=== PATIENT | male | born 1970 | race Caucasian/White ===

== ENCOUNTER 2019-06-18 12:00 | Observation (INO) ==
[2019-06-18] MEDS ORDERED: ZOFRAN 4 MG/2 ML ONE (13:20)
[2019-06-18] MEDS ORDERED: SODIUM CHLORIDE 1,000 ML IV ONE (13:25)
[2019-06-18] MEDS ORDERED: ANTIVERT ONE (16:04)
[2019-06-18] MEDS ORDERED: KAYEXALATE SUSP ONE (17:13)
[2019-06-18] MEDS ORDERED: NORVASC ONE (17:13)
[2019-06-18] MEDS ORDERED: PHENERGAN 25 MG/ML VIAL ONE ×2 (17:13→22:13)
[2019-06-18] MEDS ORDERED: TYLENOL PO PRN (17:32)
[2019-06-18] MEDS ORDERED: PHENERGAN 25 MG/ML VIAL 25 MG in SODIUM CHLORIDE 50 ML IV PRN (17:38)
[2019-06-18] MEDS ORDERED: DILAUDID 1 MG/ML SYRINGE IVP PRN (17:38)
[2019-06-18] MEDS ORDERED: HUMULIN R SUBCUT PRN (17:41)
[2019-06-18 18:10] VITALS: BMI 41.9
[2019-06-18] MEDS: SODIUM CHLORIDE 1,000 ML IV SCH (18:30)
[2019-06-18] MEDS: LOVENOX SUBCUT SCH (18:40)
[2019-06-19] MEDS: SODIUM CHLORIDE 1,000 ML IV SCH ×4 (04:32→22:12)
[2019-06-19] MEDS ORDERED: CARAFATE PO SCH (06:30)
--- NOTE | 2019-06-19 07:36 | DI ---
EXAM: Frontal chest HISTORY: Chest pain FINDINGS: Normal heart size. No acute infiltrates are seen. No vascular congestion. There is no c onsolidation, visible pleural fluid or pneumothorax. Bones reveal no acute fracture. IMPRESSION: No acute cardiopulmonary process.
[2019-06-19] MEDS: LOVENOX SUBCUT SCH (08:02)
--- NOTE | 2019-06-19 09:09 | CT ---
PRELIMINARY EXAM: CT of the head without contrast. History: Headache. Technique: Multiplanar CT images through the head were obtained without the administration of IV con trast Findings: The visualized paranasal sinuses and mastoid air cells are clear in general. No acute alexsander varial abnormalities. Intracranially the ventricular and cisternal spaces are normal in size, shape and configuration for a patient of this age. No dominant mass or midline shift. No hydrocephalous. No acute intracranial hemorrhage or abnormal extraaxial fluid collections. Impression: No acute intracranial process
--- NOTE | 2019-06-19 09:12 | CT ---
PRELIMINARY EXAM: CT ABDOMEN AND PELVIS HISTORY: Abdominal pain and diarrhea TECHNIQUE: CT abdomen and pelvis without intravenous contrast. Images were reconstructed using 5 mm section thickness. Reformations were prepared. COMPARISON: None FINDINGS: Liver is unremarkable. A few tiny splenic calcifications are present. Gallbladder, pancreas and adr enal glands appear normal. There is mild nonspecific perinephric fat stranding. No nephrolithiasis or hydronephrosis is seen. There is mild atherosclerotic disease. Stomach is mildly distended with air and fluid. Normal appendix. General bowel gas pattern is withi n normal limits. There is no convincing CT evidence of enterocolitis. Urinary bladder is unremarkab le. There is no prostate enlargement or ascites. Abdominal wall is intact. The bones reveal transitional vertebral body anatomy at the lumbosacral ju nction and mild to moderate degenerative disc changes. Lung bases are free of infiltrate. There is no pneumoperitoneum. IMPRESSION: 1. Normal bowel gas pattern. No convincing CT evidence of enterocolitis. Normal appendix. No asci deepak or free air. 2. Mild atherosclerotic disease.
--- NOTE | 2019-06-19 09:30 | CT ---
EXAM: CT of the abdomen pelvis with contrast History: Abdominal pain, elevated amylase and lipase Comparison: CT abdomen pelvis 06/18/2019 Technique: Multiplanar CT images through the abdomen pelvis were obtained following administration o f IV contrast Findings: Calcified granulomas seen within the right lower lobe. Lung bases are free of consolidati on. No acute osseous abnormalities. The liver is fatty. No gallstones identified by CT. Calcified granulomas within the spleen. No foc al liver lesions. Pancreas is unremarkable. There is no elvi peripancreatic inflammation. Adrenal glands are unremarkable. No renal masses. No hydronephrosis. No bowel obstruction. The appendix is normal. No free air and no ascites. No bladder wall thickening. Prostate is not enlarged. No p erirectal inflammation. No enlarged lymph nodes. Mild colonic diverticulosis. No abdominal aortic aneurysm. Impression: 1. No acute intra-abdominal or pelvic process. 2. Hepatic steatosis. 3. Mild colonic diverticulosis
[2019-06-19] MEDS: CARAFATE PO SCH ×3 (10:49→20:57)
--- NOTE | 2019-06-19 11:53 | ED.PDOC ---
Abdominal Pain History of Present Illness 48 year old WM HD #2 with abdominal pain, N/V/D, elevated lipase now with suspected pancreatitis. Overnight nursing notes reviewed. Nasuea improved with IV phenergan. This am he has no abdominal pain, he feels 100% better. MCF[place] resolved. Nausea resolved/stable. No abdominal pain this am. He had 2 solid BM last night. 3 Voids since admit without any pain/dysuria/burning/frequency/hesitancy. Vitals reviewed with patient/(at bedside) BP 177/85, 169/85, 113/67, 158/89. Pulse 78, 78, 106, 109, 96. RR 18- 20, O2 92-98%. Tele HR last chedk [address] while up OOB to go to restroom. Labs this am reviewed. WBC has dropped from 15.49 to 15.05, Hgb from 18.8 to 18.5. Plt 284 to 254. Sodium this am 138.6, k+ 3.85 (down from 5.82), BUN 21.8 down to 18 and Glucose 121.8. Lipase up from 348.8 to 624.1 and suggestive of acute pancreatitis. I will get the CT abd/pelvis with contrast today. I will hold the januvia and d/c this med. At discharge I will provide lantus 10 units daily. He noted to me today that he restarted the januvia 3 months ago and has seen his PCP and noted abd pain off and on over last 3 months. I discussed it is probably a good idea to avoid the class of rx DPPIV. We discussed his current meds, will continue the other agents. Again, the current symptoms have resolved. He tolerated some food last night. ?Gastroenteritis seems to be improving. Discussed dairy as a problem and he noted "i am a milkaholic." If GI irritation/gastroenteritis/pancreatitis/colitis, he may be temporarily lactose intolerant. He did not that he was feeling worse, gasseous, bloated, diaphoretic more after heavier meals/cheesy/greasy. No RUQ pain, no abd pain at all at present. Reviewed telemetry, talked with am nurse, case management, patient/. Reviewed labs with them today. CK/Troponin I negative so far. Tele and EKG w/o any sign/symptoms of cardiac process. Diarrhea resolved, nausea resolved, abdominal pain resolved, MCF[place] resolved, labs improving other than lipase. Lovenox for DVT prophy Disposition: Current plan discharge in am tomorrow if symptoms continue to improve. Laboratory Last Values WBC 15.05 K/ul (4.2-10.2) H 06/19/19 05:00 RBC 6.07 10^6/ul (4.70-6.10) 06/19/19 05:00 Hgb 18.5 g/dl (14.0-18.0) H 06/19/19 05:00 Hct 54.9 % (42.0-52.0) H 06/19/19 05:00 MCV 90.4 fl (80.0-94.0) 06/19/19 05:00 MCH 30.5 pg (27.0-31.0) 06/19/19 05:00 MCHC 33.7 (31.8-35.4) 06/19/19 05:00 RDW Coeff of Sonia 12.4 % (11.6-14.8) 06/19/19 05:00 Plt Count 254 10^3/uL (140-440) 06/19/19 05:00 Immature Gran % (Auto) 0.9 % (0.0-5.0) 06/19/19 05:00 Neut % (Auto) 70.7 06/19/19 05:00 Lymph % (Auto) 17.9 (10.0-50.0) 06/19/19 05:00 [place] % (Auto) 10.0 (0-10) 06/19/19 05:00 Eos % (Auto) 0.2 % (0.0-7.0) 06/19/19 05:00 Baso % (Auto) 0.3 % (0.0-3.0) 06/19/19 05:00 Immature Gran # (Auto) 0.1 (0.0-1.0) 06/19/19 05:00 Neut # (Auto) 10.7 K/ul (2.0-6.9) H 06/19/19 05:00 Lymph # (Auto) 2.7 K/uL (0.60-3.4) 06/19/19 05:00 [place] # (Auto) 1.5 K/uL (0.4-2.0) 06/19/19 05:00 Eos # (Auto) 0.0 K/ul (0.0-0.7) 06/19/19 05:00 Baso # (Auto) 0.1 K/uL (0-0.2) 06/19/19 05:00 Sodium 138.6 mmol/L (134.5-145) 06/19/19 05:00 Potassium 3.85 mmol/L (3.5-5.1) 06/19/19 05:00 Chloride 103.5 mmol/L (98-107) 06/19/19 05:00 Carbon Dioxide 27.5 mmol/L (22-30.0) 06/19/19 05:00 Anion Gap 11.45 06/19/19 05:00 BUN 18.0 mg/dL (9-20) 06/19/19 05:00 Creatinine 0.77 mg/dL (0.60-1.10) 06/19/19 05:00 Estimated GFR (MDRD) 108.00 mL/min 06/19/19 05:00 BUN/Creatinine Ratio 23.37 06/19/19 05:00 Glucose 121.8 mg/dL (74-106) H D 06/19/19 05:00 Hemoglobin A1c 7.62 (4.0-6.0) H 06/19/19 05:00 Calcium 8.56 mg/dL (8.4-10.2) 06/19/19 05:00 Magnesium 1.84 mg/dL (1.6-2.3) 06/18/19 13:03 Total Bilirubin 0.68 mg/dL (0.2-1.3) 06/19/19 05:00 AST 26.2 U/L (17-59) 06/19/19 05:00 ALT 32.9 U/L (0-50) 06/19/19 05:00 Alkaline Phosphatase 49.4 U/L (38-126) D 06/19/19 05:00 Total Creatine Kinase 82.0 U/L (55-170) 06/19/19 07:50 Troponin I < 0.012 ng/ml (0.0000-0.120) 06/19/19 07:50 Total Protein 8.05 g/dL (6.3-8.2) 06/19/19 05:00 Albumin 4.34 g/dL (3.5-5.0) 06/19/19 05:00 Globulin 3.71 06/19/19 05:00 Albumin/Globulin Ratio 1.16 06/19/19 05:00 Amylase 220.8 U/L (30-110) H D 06/19/19 05:00 Lipase 624.1 U/L (23-300) H 06/19/19 05:00 Urine Color Yellow (YELLOW) 06/18/19 13:03 Urine Clarity Clear (CLEAR) 06/18/19 13:03 Urine pH 5.0 (5-9) 06/18/19 13:03 Ur Specific [place] 1.015 (1.005-1.030) 06/18/19 13:03 Urine Protein Negative (NEGATIVE) 06/18/19 13:03 Urine Glucose (UA) 2+ (NEGATIVE) 06/18/19 13:03 Urine Ketones 3 (NEGATIVE) 06/18/19 13:03 Urine Blood Negative (NEGATIVE) 06/18/19 13:03 Urine Nitrite Negative (NEGATIVE) 06/18/19 13:03 Urine Bilirubin Negative (NEGATIVE) 06/18/19 13:03 Urine Urobilinogen 0.2 (0.2) 06/18/19 13:03 Ur Leukocyte Esterase Negative (NEGATIVE) 06/18/19 13:03 Urine Opiates Screen Negative (NEGATIVE) 06/18/19 13:03 Ur Oxycodone Screen Negative (NEGATIVE) 06/18/19 13:03 Urine Methadone Screen Negative (NEGATIVE) 06/18/19 13:03 Ur Propoxyphene Screen Negative (NEGATIVE) 06/18/19 13:03 Ur Barbiturates Screen Negative (NEGATIVE) 06/18/19 13:03 U Tricyclic Antidepress Negative (NEGATIVE) 06/18/19 13:03 Ur Phencyclidine Scrn Negative (NEGATIVE) 06/18/19 13:03 Ur Amphetamine Screen Negative (NEGATIVE) 06/18/19 13:03 U Methamphetamines Scrn Negative (NEGATIVE) 06/18/19 13:03 U Benzodiazepines Scrn Negative (NEGATIVE) 06/18/19 13:03 Urine Cocaine Screen Negative (NEGATIVE) 06/18/19 13:03 U Cannabinoids Screen Positive (NEGATIVE) 06/18/19 13:03 Plasma/Serum Alcohol < 10.0 mg/dL (0.0-50.0) 06/18/19 13:03 Abdominal pain location: none (now resolved. ) Pain scale (0-10): 0 Associated symptoms: Denies diarrhea (resolved) or hematuria Review of Systems Const All systems reviewed & are unremarkable except as noted in HPI and below Reports as per HPI and change in appetite (better) Eyes Reports no additional eye complaints ENT Reports no additional ear, nose, mouth, and throat complaints Card Reports no additional cardiovascular complaints; Denies chest pain or dizziness (now resolved. ) Resp Reports no additional respiratory complaints, Denies cough and Denies shortness of breath with activity GI Reports no additional gastrointestinal complaints and change in appetite (better); Denies abdominal pain (resolved), bright, red blood in stool, constipation, loose stools (resolved), difficulty swallowing or nausea (resolved) Yes no additional male genitourinary complaints and as per HPI; No discharge, painful urination or blood in urine Musc Reports no additional musculoskeletal complaints; Denies back pain or decreased strength Skin Reports no additional skin complaints; Denies unusual bruising or dry skin Neuro Reports no additional neurologic complaints and as per HPI Psych Reports no additional psychiatric complaints, as per HPI, anxiety (stable) and depression (stable); Denies lack of concentration Endo Reports no additional endocrine complaints Raoul/Lymph Reports no additional hematologic/lymphatic complaints Aller/Immun Reports no additional allergic/immunologic complaints Exam Const Constitutional General: cooperative, healthy appearing, comfortable, no acute distress, alert, awake and active; No acute distress or diaphoretic (resolved) Nutritional Appearance: obese Orientation/consciousness: oriented to person, oriented to place, oriented to time and oriented x3 Constitutional Limitations: no limitations [facility] Head: normal to inspection, normocephalic and atraumatic Ears: hearing grossly normal bilaterally and external ears normal General nose exam: external nose normal, nares normal, nasal mucous membranes and turbinates normal and no nasal discharge Face and sinus: normal facial exam and sinuses nontender Teeth and gingiva: dentition normal Throat: posterior oropharynx normal Eyes General: appearance normal, both eyes and all related structures Periorbital: periorbital findings normal Sclera: sclerae normal Pupils: PERRL EOM: EOM intact bilaterally Neck Neck: normal visual inspection Neck mass: No Thyroid: thyroid normal Chest Chest palpation & inspection: normal inspection of the chest Resp Effort & Inspection: normal respiratory effort and able to speak in complete sentences Auscultation: clear to auscultation bilaterally Cardio Rate: regular rate Rhythm: regular rhythm Heart sounds: S1 normal, S2 normal and no murmurs Bruits: no abdominal aortic bruits Peripheral pulses: pulses 2+ throughout GI Inspection (GI): normal to inspection, No abdominal wall ecchymosis, No abdominal distension and central obesity Palpation (GI): No abdominal aortic bruit, soft, nontender, no guarding, no hepatosplenomegaly, no hepatomegaly and no splenomegaly Percussion: normal to percussion Auscultation: normal bowel sounds Rectal Exam - Male: Yes deferred General Exam: Yes bimanual renal exam normal bilaterally and Yes bladder normal to palpation Musc Cervical Spine: normal cervical lordosis Skin General skin exam: no rashes or lesions noted, elasticity normal and turgor normal Rashes: no rashes Neuro General: Yes oriented to person, Yes oriented to place and Yes oriented to time Cranial nerves: Yes CN's II-XII intact bilaterally and Yes PERRL Motor exam (neuro): strength 5/5 throughout Sensory Exam: No sensory deficit Extrem General: normal to inspection, full ROM, normal capillary refill and no clubbing, cyanosis or edema Psych Appearance: grossly normal Mental Status: mental status grossly normal Mood: congruent mood Speech and movement: speech and movement normal Thought process: normal thought process Assessment & Plan Assessment & Plan (1) Elevated lipase: Current Visit: Yes Comment: Elevated lipase at this time consistent with pancreatitis. Await CT abd/pelvis with contrast. Lipase elevated today up to 624.1 from 348.8. We will continue to treat as pancreatitis. HIs WBC is stable at 15.05. BUN has dropped from 21.8 to 18. Vasu score of 0-1. At present he is symptom free, abdominal pain is resolved, dizziness is resolved, [place] is resolved. He is feeling better, tolerating some PO intake. IF he continues to improve, plan will be to d/c him home tomorrow. Will hold the Januvia. Continue jardiance. Continue SSI. Avoid dairy x 1 week. Code(s): R74.8 - Abnormal levels of other serum enzymes Category: Medical (2) Hyperlipidemia: Current Visit: Yes Comment: Chronic stable. Code(s): E78.5 - Hyperlipidemia, unspecified Category: Medical (3) Chewing tobacco nicotine dependence: Current Visit: Yes Comment: Continued cessation encouraged. Code(s): F17.220 - Nicotine dependence, chewing tobacco, uncomplicated Category: Social Hx (4) Obesity: Current Visit: Yes Comment: Chronic/stable/unchanged. Code(s): E66.9 - Obesity, unspecified Category: Medical (5) Essential (primary) hypertension: Current Visit: Yes Comment: Increase Lisinopril from 10mg to 20mg. We will continue to fluid hydrate with 150ml NS. Code(s): I10 - Essential (primary) hypertension Category: Medical (6) Type 2 diabetes mellitus with hemoglobin A1c goal of less than 7.0%: Current Visit: Yes Comment: Hold metformin x 48 hours. D/C Januvia. Continue jardiance. Continue SSI. Stable. A1C ordered. - A1C ordered. Code(s): E11.9 - Type 2 diabetes mellitus without complications Category: Medical (7) Hyperkalemia: Current Visit: Yes Comment: Resolved. Continue to monitor. - CMP in am tomorrow. Code(s): E87.5 - Hyperkalemia Category: Medical (8) Dizziness: Current Visit: Yes Comment: Resolved. Continue to monitor. Code(s): R42 - Dizziness and giddiness Category: Medical Patient Instructions: Disposition> >35 minutes rounding on patient today. He is feeling much better. BP is more stable. Tolerating the carafate. Lovenox is onboard. No abx for now. Repeat CBC/CMP in am. CT abd/pelvis negative. Plan to D/C patient from inpatient status 06/20/19. SSI on board. Saw-I on board.
[2019-06-19] MEDS ORDERED: LEXAPRO PO SCH (17:00)
[2019-06-19] MEDS ORDERED: ZOCOR PO SCH (17:00)
[2019-06-19] MEDS ORDERED: JARDIANCE PO SCH (17:00)
[2019-06-19] MEDS ORDERED: ZESTRIL PO SCH ×2 (17:00)
--- NOTE | 2019-06-19 17:26 | PCM ---
Chief Complaint Chief Complaint: Abdominal pain, nausea, dry heaving and diaphoresis. History of Present Illness History of Present Illness: 48 yo CM in ER room 5 presented to ED around noon today and met with DR. Werner. Here with Mary today. The patient was driving earlier from [place] to [employer]. While driving he felt real hot, head swimming/nausea, sensation to have BM, dry heaves/retching. He has had recent change in meds Januvia and jardiance. He has been on them x 3 months per patient. He is on metformin as well for his diabetes. The patient last A1C was 1 month ago and went from 13.1 to 6.3. the patient has intermittent cramping, n ausea, [place]. ETOH intake 18pack per week. No tobacco smoking, + chewing tobacco. I was called at 4:[address] Werner. Patient PCP Jacinta Gilbert. As noted above, he was going shopping, became hot in car, AC was not functional, hot/sweating, profuse dizziness and sweating. Severely light headed. Tried to drive back home, could not make it. Family stopped him around [place]. He was diffusely sweating, no r/o chest pain, he was pale, abdominal bloating discomfort, dizziness. This is #2 event in last week. It has happened x 2 historically: starts with GI pain, explosive diarrhea and then weakness. He is not checking sugars regularly at home. Patient was seen in ED room 5 1645 by me. He feels weak, disoriented, dizzy, EKG in ED was normal. CT head/abd pelvis normal w/o contrast. No convincing CT evidence of enterocolitis. No ascites or free air. We will get IV contrast exam tomorrow am. Consider pancreatitis as amylase and lipase were up a little. This may be from emesis but also ?januvia/jardiance. Urine 3+ ketones. Glucose was 235, known DM 2. Last meal/food around 11 am today. He noted he had a few bites of snickers as his thought sugars were bottoming out. He may have had that happen and now having hyperglycemia. WBC 15.24, hgb 18.9, plt 276. neutrophilia. Hemoconcentrated. CMP showed 135 sodium, potassium 5.82, cl 101.5. glucose 25.1. calcium 8.99. AST 31.1, Alt 41.6. Albumin 4.77. amylase and lipase elevated. ETOH <10. Mg++ 1.84. Urine SG 1.015. EKG reviewed by me QTC 446, NSR, NL EKG. Normal MD, normal QRS, normal axis, no acute ST/T changes. In ED he has had ~600-700 ml NS w/o K+. meclizine 25mg, Kayexalate PO, Norvasc 5mg. Diet soft drinks regularly 3 per day or so. He normally takes lisinopril. This was held by ED due to hyperkalemia. No recent travel, no recent steroids, no sick contacts. Last use of marijuana last night. He likes to smoke marijuana. Does not want to quit smoking THC. He has not increased ibuprofen or aleve. He has not had ulcer historically. Hydrated in ED, antivert given. Zofran given and nausea resolved. He notes something is weird/not right. Normally healthy but this came up and is odd for him. No abdominal pain, soft non tender now. Vitals most recently in ED showed 166/[address] Werner noted that they were variable. Nothing for BP was given so far in ED as it has been variable. Lisinopril held as above and Norvasc ordered. I will resume the lisinopril. Telemetry so far in ED nothing abnormal. No rhythm abnl. K+ minimally elevated. He is moaning. Dizzy, weak, tired, nauseated in head and stomach. I will give him SSi, hold Januvia. Hold metformin Continue jardiance. No urinary symptoms. No back pain, no blood in stool/emesis. He received kayexalate within ED 15G. Gastroenteritis vs Pancreatitis possible. As noted above we will get a CT abd/pelvis in am w/ contrast. I will add Phenergan 25mg IV or PO q 8 hours. Fluids 150ml/hour for now. Repeat CBC/CMP in am, amylase/lipase in am. Tele to be monitored. SSI. I checked back on patient at 1999. He was feeling better, less puny, less nausea, [place] better. BP was 177/85. Fluids to continue tonight. Resume lisinopril and will give norvasc 5 as listed. Review of Systems Constitutional: chills, weakness, sweats, fatigue and loss of appetite; No fever Eyes: No blurred vision, double-vision, discharge, itching, pain, redness, photophobia and other Ears: No pain, bleeding, drainage, ringing, hearing loss and other Nose: No bleeding, congestion, discharge and other Throat: No pain, swelling, voice change and other Mouth: No bleeding, pain, swelling and other Respiratory: No cough, shortness of air, wheeze, hemoptysis, pain with breathing and other Cardiovascular: No chest pain, left arm pain, diaphoresis, PND, orthopnea, edema, palpitations, syncope and other Gastrointestinal: abdominal pain, nausea and diarrhea; No vomiting, melena, hematemesis, hematochezia, dysphagia and constipation Genitourinary: No dysuria, hematuria, frequency, incontinence, flank pain, penile discharge, testicular pain and testicular swelling Neurological: headache, dizziness and weakness; No seizure, numbness, speech difficulty, problems with walking, tremor and fainting Musculoskeletal: No pain and swelling in joints Skin: No rash, pruritus, lacerations, wounds and bruising Immunology: No hives, itching, frequent infections and difficulty healing Hematology: No easy bruising, easy bleeding and swollen glands Endocrine: excessive thirst; No weight changes, cold intolerance, heat intolerance, excessive hunger and polyuria Psychiatric: No depression, anxiety, sleeplessness, hopelessness, suicidal and hallucinations Habits: tobacco use (chewing tobacco), substance use (THC/Marijuana) and alcohol use (2-3 drinks per day beer. ) Past Medical History Past Medical History: DM2/HTN/Hyperlipidemia. Past Surgical History Past Surgical History: None Allergies Allergies Allergy/AdvReac Type Severity Reaction Status Date / Time No Known Allergies Allergy Unverified 06/18/19 18:10 Medications Medications: Medications Generic Name Dose Route Start Last Admin Trade Name Freq PRN Reason Stop Dose Admin Acetaminophen 650 mg 06/18/19 17:32 Tylenol PO 07/18/19 17:31 Q4H PRN Mild Pain Enoxaparin Sodium 40 mg 06/18/19 18:00 Lovenox SUBCUT 07/18/19 17:59 DAILY WOJCIECH Hydromorphone HCl 1 mg 06/18/19 17:38 Dilaudid 1 Mg/Ml Syringe IVP 07/18/19 17:37 Q4HR PRN Abdominal Pain Sodium Chloride 1,000 mls @ 150 mls/hr 06/18/19 18:00 Sodium Chloride IV 07/18/19 17:59 .Q6H40M WOJCIECH Promethazine HCl 25 mg/ Sodium 51 mls @ 75 mls/hr 06/18/19 17:38 Chloride IV 07/18/19 17:37 Q6H PRN Nausea / Vomiting Family History Past Family History: Mother Breast Cancer Father cancer unknown Social History Past Social History: Lives with . 12 yr old daughter. THC use. Works for [employer]. tobacco chewing. Physical Examination HEENT: Vitals: As per HPI/ER documentation. Constitutional: Appearance-No acute distress, Consistent with stated age. Orientation- Oriented x 3, alert Build and Nutrition-[Obese male] General- Patient is pleasant and cooperative with the interview and exam. Integumentary: General-No rashes, ulcers or lesions. Palpation- Normal skin moisture/turgor. Skin is warm to touch, appropriate. Capillary refill is normal bilateral Upper and lower extremity. Head/Neck: Head- normocephalic and atraumatic. Neck- without visible/palpable lumps or pulsations. Palpation- No bony tenderness about head/neck along frontal, occipital, temporal, parietal, mastoid, jawline, zygoma, orbit or any other location. NO temporal artery tenderness. No TMJ tenderness. Neck Supple. Thyroid-No thyromegaly, no nodules Eye: Bilaterally PERRLA, EOMI. No discharge. Upper and lower eyelids are normal. Sclera/conjunctiva normal without discharge. Cornea is normal and clear. Lens is normal. Eyeball appears normal. No ciliary flushing, no conjunctival injection. ENMT: Pinna- normal without tenderness or erythema. External auditory canal Left- normal without erythema or discharge, no excessive cerumen. External auditory canal Right-normal without erythema or discharge, no excessive cerumen. TM left- Yost/pearly, normal light reflex and anatomy TM Right- Yost/pearly, normal light reflex and anatomy Hearing Assessment-normal to conversational speech. Nose and sinus- No sinus tenderness along frontal/maxillary region. External appearance normal and midline. Nares- bilateral quiet airflow, no discharge. Nasal mucosa- No bleeding noted and no ulcerations observed. Labette, moist. Turbinates non boggy. Lips- normal color, moist without cracks/lesions Oral Cavity/Palate- hard/soft palate intact without lesions, oral mucosa pink and moist. Tongue normal midline. Oropharynx- no pharyngeal erythema, Uvula midline. No post nasal drip. No exudate. Salivary glands- Non tender to palpation CHEST/LUNG: Inspection- symmetric chest wall no pectus deformity. Normal effort, no distress, no use of accessory muscles. Palpation- nontender sternum, ribline. No abnormal pulsations. Auscultation- Breath sounds normal throughout all lung vaughn. Normal tracheal sounds, Normal bronchial sounds overlying sternum, Bronchovessicular sounds normal between scapulae posteriorly, Normal vessicular breath sounds heard throughout periphery. Lungs are clear today. Adventitious sounds- No wheezes, rales, rhonchi. CARDIOVASCULAR: Carotid artery- normal, no bruits or abnormal pulsations. Jugular vein- no pulsations. Palpation/Percussion- Normal PMI, no palpable thrill Auscultation- Regular rate and rhythm. No murmur noted in sitting, supine positions. Extremities- no digital clubbing, cyanosis, edema, increased warmth. ABDOMEN: Inspection- normal and no visible pulsations. Normal contour. Auscultation- Bowel sounds normal, no abdominal bruits. Palpation/Percussion- soft, mild generalized tenderness haney negative, mcburney point tenderness negative,, no rebound tenderness, no rigidity (guarding), no jar tenderness, no masses. Liver-no hepatomegaly, Spleen no splenomegaly, Hernias- none. Rectal not examined. Peripheral Vascular: Upper extremity Left- Normal temperature with pink nailbeds and no ulcerations. Upper extremity Right- Normal temperature with pink nailbeds and no ulcerations. Lower extremity- Normal temperature with pink nailbeds and no ulcerations. DP pulses 2+ bilaterally. Pedal hair intact. Normal capillary refill. Edema- No edema. Musculoskeletal: Generalized-No generalized swelling or edema of extremities, no digital clubbing or cyanosis, neurovascularly intact all four extremities. Upper extremity- Symmetrical posture. No visible deformity. Normal sensation along medial and lateral upper extremity proximally and distally. NO tenderness overlying shoulder, lateral/medial epicondyle. Pipefitter 5/5 and strength 5/5 bilateral UE. Elbow palpated, no tenderness overlying olecranon. Normal supination, pronation to active/passive ROM and to resisted rotation. Bicep insertion/tricep insertion appear normal without obvious pathology. Rotator cuff evaluated and intact. Normal wrist ROM bilaterally. Normal hand movement, intrinsic muscles of hands normal. No tenderness to palpation of hands/wrists/elbows. Lower extremity- Hip: Not tender to palpation, no pain, no swelling, edema or erythema of surrounding tissue, normal strength and tone. Normal appearing hip ROM bilaterally without pain. Knee: Knee ROM normal. No tenderness overlying trochanters, no tenderness about patella, quad tendon, patellar tendon. No tenderness at tibial tuberosity. Ankle: normal ROM not tender to palpation along medial/lateral malleolus. Foot: Normal movement of toes, no tenderness bilateral feet/toes. Normal foot type. Spine/Ribs- No deformities, masses or tenderness, no known fractures, normal strength, Normal ROM. Normal stability No tenderness along C/T/L spine. Normal appearing ROM about spine. Neurological: General- Moves all 4 extremities symmetrically. Symmetrical face and body posture. Cranial nerves- individually evaluated II-XII and intact. PERRLA, Normal EOMI, visual/special senses appear intact, Face is symmetrical and normal sensation/movement, normal tongue, normal strength/posture of neck musculature. Reflexes- intact with DTR 2+ patellar, Achilles, bicep, brachial, tricep. Ankle clonus normal with 2 beats. Strength- 5/5 bilateral UE and LE. Soft touch- intact bilateral UE and LE. Temperature sensation- intact bilateral UE and LE. Neuropsych: Oriented- Person, place, time. (AAOx3), Mood/affect- normal and congruent. Able to articulate well. Speech-Normal speech, normal rate, normal tone, normal use of language, volume and coherence. Thought content- normal with ability to perform basic computations and apply abstract thought/reason. Associations- intact, no SI/HI, no hallucinations, delusions, obsessions. Judgment/insight- Appropriate. Memory-Recall intact, remote and recent memory intact. Knowledge- Age appropriate fund of knowledge, concentration and attention span normal. Lymphatic: Head/Neck- normal size and non tender to palpation. Axillary- normal size and non tender to palpation. Femoral and Inguinal- normal size and non tender to palpation. Lab/Tests/Diagnostic Imaging Lab/Tests/Diagnostic Imaging: Laboratory Last Values WBC 15.49 K/ul (4.2-10.2) H 06/18/19 13:03 RBC 6.20 10^6/ul (4.70-6.10) H 06/18/19 13:03 Hgb 18.8 g/dl (14.0-18.0) H 06/18/19 13:03 Hct 56.0 % (42.0-52.0) H 06/18/19 13:03 MCV 90.3 fl (80.0-94.0) 06/18/19 13:03 MCH 30.3 pg (27.0-31.0) 06/18/19 13:03 MCHC 33.6 (31.8-35.4) 06/18/19 13:03 RDW Coeff of Sonia 12.6 % (11.6-14.8) 06/18/19 13:03 Plt Count 284 10^3/uL (140-440) 06/18/19 13:03 Immature Gran % (Auto) 0.6 % (0.0-5.0) 06/18/19 13:03 Neut % (Auto) 80.3 06/18/19 13:03 Lymph % (Auto) 11.0 (10.0-50.0) 06/18/19 13:03 [place] % (Auto) 6.8 (0-10) 06/18/19 13:03 Eos % (Auto) 0.8 % (0.0-7.0) 06/18/19 13:03 Baso % (Auto) 0.5 % (0.0-3.0) 06/18/19 13:03 Immature Gran # (Auto) 0.1 (0.0-1.0) 06/18/19 13:03 Neut # (Auto) 12.4 K/ul (2.0-6.9) H 06/18/19 13:03 Lymph # (Auto) 1.7 K/uL (0.60-3.4) 06/18/19 13:03 [place] # (Auto) 1.1 K/uL (0.4-2.0) 06/18/19 13:03 Eos # (Auto) 0.1 K/ul (0.0-0.7) 06/18/19 13:03 Baso # (Auto) 0.1 K/uL (0-0.2) 06/18/19 13:03 Sodium 135.5 mmol/L (134.5-145) 06/18/19 13:03 Potassium 5.82 mmol/L (3.5-5.1) H 06/18/19 13:03 Chloride 101.5 mmol/L (98-107) 06/18/19 13:03 Carbon Dioxide 22.8 mmol/L (22-30.0) 06/18/19 13:03 Anion Gap 17.02 06/18/19 13:03 BUN 21.8 mg/dL (9-20) H 06/18/19 13:03 Creatinine 0.77 mg/dL (0.60-1.10) 06/18/19 13:03 Estimated GFR (MDRD) 108.00 mL/min 06/18/19 13:03 BUN/Creatinine Ratio 28.31 06/18/19 13:03 Glucose 235.1 mg/dL (74-106) H 06/18/19 13:03 Calcium 8.99 mg/dL (8.4-10.2) 06/18/19 13:03 Magnesium 1.84 mg/dL (1.6-2.3) 06/18/19 13:03 Total Bilirubin 0.66 mg/dL (0.2-1.3) 06/18/19 13:03 AST 31.1 U/L (17-59) 06/18/19 13:03 ALT 41.6 U/L (0-50) 06/18/19 13:03 Alkaline Phosphatase 81.8 U/L (38-126) 06/18/19 13:03 Total Creatine Kinase 69.2 U/L (55-170) 06/18/19 13:03 Total Protein 8.82 g/dL (6.3-8.2) H 06/18/19 13:03 Albumin 4.77 g/dL (3.5-5.0) 06/18/19 13:03 Globulin 4.05 06/18/19 13:03 Albumin/Globulin Ratio 1.17 06/18/19 13:03 Amylase 182.1 U/L (30-110) H 06/18/19 13:03 Lipase 348.8 U/L (23-300) H 06/18/19 13:03 Urine Color Yellow (YELLOW) 06/18/19 13:03 Urine Clarity Clear (CLEAR) 06/18/19 13:03 Urine pH 5.0 (5-9) 06/18/19 13:03 Ur Specific [place] 1.015 (1.005-1.030) 06/18/19 13:03 Urine Protein Negative (NEGATIVE) 06/18/19 13:03 Urine Glucose (UA) 2+ (NEGATIVE) 06/18/19 13:03 Urine Ketones 3 (NEGATIVE) 06/18/19 13:03 Urine Blood Negative (NEGATIVE) 06/18/19 13:03 Urine Nitrite Negative (NEGATIVE) 06/18/19 13:03 Urine Bilirubin Negative (NEGATIVE) 06/18/19 13:03 Urine Urobilinogen 0.2 (0.2) 06/18/19 13:03 Ur Leukocyte Esterase Negative (NEGATIVE) 06/18/19 13:03 Urine Opiates Screen Negative (NEGATIVE) 06/18/19 13:03 Ur Oxycodone Screen Negative (NEGATIVE) 06/18/19 13:03 Urine Methadone Screen Negative (NEGATIVE) 06/18/19 13:03 Ur Propoxyphene Screen Negative (NEGATIVE) 06/18/19 13:03 Ur Barbiturates Screen Negative (NEGATIVE) 06/18/19 13:03 U Tricyclic Antidepress Negative (NEGATIVE) 06/18/19 13:03 Ur Phencyclidine Scrn Negative (NEGATIVE) 06/18/19 13:03 Ur Amphetamine Screen Negative (NEGATIVE) 06/18/19 13:03 U Methamphetamines Scrn Negative (NEGATIVE) 06/18/19 13:03 U Benzodiazepines Scrn Negative (NEGATIVE) 06/18/19 13:03 Urine Cocaine Screen Negative (NEGATIVE) 06/18/19 13:03 U Cannabinoids Screen Positive (NEGATIVE) 06/18/19 13:03 Plasma/Serum Alcohol < 10.0 mg/dL (0.0-50.0) 06/18/19 13:[address] abd/pelvis without contrast No acute findings. Assessment (1) Hyperlipidemia: Status: Acute Code(s): E78.5 - Hyperlipidemia, unspecified SNOMED Code(s): 80609872 (2) Elevated lipase: Status: Acute Code(s): R74.8 - Abnormal levels of other serum enzymes SNOMED Code(s): 637974435 Plan Plan: Gastroenteritis/[place]/Dizziness/Elevated Lipase: Ddx considered today i ncluded Gastroenteritis (viral and non viral), Gastritis, PUD, Pancreatitis, Colitis, IBS. We talked about travel, about personal/social history and symptoms. No red flags. Biggest risk factor is dehydration. He had some hemoconcentration. No bloody emesis/diarrhea by history. Mild cramping, mild abdominal pain. HE may have had vasovagal syncope due to pain in his abdomen, may have had hypoglycemia. Risks/benefits of current and new medications discussed with the patient/family today. We talked about anti-emetics and anti- diarrheals. Symptoms are quite vague, which is odd. He has minimal symptoms. BP is up, he reports nausea. Minimal elevation of lipase. He has mild elevation of potassium. He was given kayexalate x1. I will repeat labs in the am. Eval tele. - Admit to inpatient - Telemetry - CBC/CMP in am - Lipase in am - CT with contrast in am - NPO after midnight - Dilaudid 1mg q 4 hours pRn pain - Phenergan 25 mg IV PRN nausea - Tylenol 650 PO PRN [place]/fever - Fluid hydration 150ml which is about maintenance. - CKMB/ Troponin I trended over next 6 hours. Diabetes 2 A1C goal <7% with hyperlglycemia: Hold metformin, hold januvia. Januvia SE can cause pancreatitis. I will have Q 6 hour accucheck and SSI to go with this. - A1c -hold metformin due to CT w/ contrast in am - Hold januvia Hypertension: Resume lisinopril. Norvasc 5mg. Monitor vitals. - Fluid hydration Nicotine dependence: Tobacco Cessation discussed today for 2 minutes. We reviewed lifestyle choices and discussed quitting. Ready to quit status discussed. The risks and hazards of continued tobacco abuse were discussed with the patient today and total tobacco cessation as recommended. It was clearly and unambiguously explained that continued tobacco usage will adversely affect overall morbidity and mortality of the patient. Patient was informed that tobacco use can lead to numerous cancers, worsening of cardiovascular and pulmonary systems and that lung damage is often permanent and irreversible. I advised the patient to inform me if any further assistance is requested, as we can offer counseling services, nicotine replacement inhaled, patch, lozenge, gum, or prescription medications to include Chantix or Wellbutrin for assistance. I will reassess the interest in tobacco cessation at the next and all subsequent visits. DVT Prophy: - Lovenox 40mg subcut. Activity - UP with assist - Fall precaution Diet: - ADA 1800 kcal. - NPO after midnight for exam/CT Disposition: >70 minutes of time spent with patient tonight. Concern for pancreatitis. Will hold januvia, continue jardiance. Continue lisinopril. stop the metformn for now. We will f/u with patient in am. Expected length of stay48 hours. [facility] Medical History (Updated 06/19/19 @ 15:04 by ASHELY LEDESMA, LISA) Hypertension (Acute) Diabetes (Acute) Family History (Updated 06/18/19 @ 18:37 by PEREZ KELLY RN) 32 MOTHER Cancer of breast 33 FATHER Cancer of lung 32 MOTHER Myocardial infarct 33 FATHER Emphysema of lung 33 FATHER Emphysema of lung Other COPD (chronic obstructive pulmonary disease) Social History (Updated 06/18/19 @ 18:50 by PEREZ KELLY RN) Do you feel safe at home: Yes History of physical abuse: No History of emotional abuse: No History of sexual abuse: No Would you like helpful sources: No Smoking and tobacco status: Never smoker Alcohol intake: never Counseling given: No Substance use type: does not use Counseling given: No Counseling provided: none Are you now , , , , never or living with a partner?: In a typical week, how many times do you talk on the telephone with family, friends, or neighbors?: never How often do you get together with friends or relatives?: never Social isolation score (0-1 are the most socially isolated patients): 1 Adopted: No Caregiver/support person: Yes Foster care: No Household members: spouse Housing: house Marital status: M Lives independently: Yes Daycare: family member Number of children: 1 Highest education level completed: high school graduate Financial difficulty paying for basics: not very hard service: No snf: No Current occupational status: employed 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 Current occupational exposures/hazards: Yes Leisure activites: reading History of recent travel: No Sexually active: Yes Do you think of yourself as: straight/heterosexual Current gender identity: male Seatbelt use: always Drives intoxicated or rides with intoxicated driver license agent: No Current diet type/program: diabetic Well-balanced diet: about half the time Working smoke detector in home: Yes Fire extinguisher in home: Yes Carbon monoxide detector in home: Yes Firearms in home: Yes What type of physical activity do you participate in?: walking Physical activity functional status: independent ambulation How many days of moderate to strenuous exercise, like a brisk walk, did you do in the last 7 days: 4
[2019-06-20] MEDS: SODIUM CHLORIDE 1,000 ML IV SCH ×3 (00:23→06:28)
[2019-06-20 05:12] VITALS: BP 123/73; TEMP 98.1
[2019-06-20] MEDS: CARAFATE PO SCH (06:25)
--- NOTE | 2019-09-16 10:56 | PCM.DC ---
Final Diagnosis: Pancreatitis: Suspected cause from januvia Diabetes 2 a1c goal <7%: A1C >7% currently we will add basaglar 10 units nightly. HOld januvia. Metformin held until monday06/22/19 Essential HTN: Dose changed lisinopril increased to 20mg. BMI 41.9 Chewing tobacco use: Cessation Encouraged. THC use: Cessation Encouraged Hyperkalemia: Resolved. (1) Elevated lipase: Status: Acute Code(s): R74.8 - Abnormal levels of other serum enzymes SNOMED Code(s): 872512531 (2) Hyperlipidemia: Status: Acute Code(s): E78.5 - Hyperlipidemia, unspecified SNOMED Code(s): 03254362 (3) Chewing tobacco nicotine dependence: Status: Acute Code(s): F17.220 - Nicotine dependence, chewing tobacco, uncomplicated SNOMED Code(s): 50046427 (4) Obesity: Status: Acute Code(s): E66.9 - Obesity, unspecified SNOMED Code(s): 867235690 (5) Essential (primary) hypertension: Status: Acute Code(s): I10 - Essential (primary) hypertension SNOMED Code(s): 43790887 (6) Type 2 diabetes mellitus with hemoglobin A1c goal of less than 7.0%: Status: Acute Code(s): E11.9 - Type 2 diabetes mellitus without complications SNOMED Code(s): 83787175 (7) Hyperkalemia: Status: Acute Code(s): E87.5 - Hyperkalemia SNOMED Code(s): 87870110 (8) Dizziness: Status: Acute Code(s): R42 - Dizziness and giddiness SNOMED Code(s): 725851209 Reason for Hospitalization: Dizziness, hemoconcentrated CBC, Hyperglycemia, THC +, abdominal pain, elevated LIpase. Condition at Discharge: Markedly improved. 100% better per patient. Held januvia. Added basaglar. Increased lisinopril to 20mg daily. Continue carafate, continue home meds. Metformin to resume 06/22/19. Medications at Discharge: Ambulatory Orders Medication Instructions Recorded Jardiance 25 mg PO 1700 06/18/19 escitalopram oxalate [Lexapro] 20 mg PO 1700 06/18/19 metformin 1,000 mg PO 1700 06/18/19 simvastatin 20 mg PO 1700 06/18/19 insulin glargine [Basaglar KwikPen 10 unit SUBCUT DAILY #3 ml 06/20/19 U-100 Insulin] lisinopril 20 mg PO DAILY #30 tab 06/20/19 pen needle, diabetic #10 each 06/20/19 sucralfate 1 g PO ACHS #400 ml 06/20/19 Lab/Diagnostics: Laboratory Last Values WBC 11.34 K/ul (4.2-10.2) H 06/20/19 03:07 RBC 5.67 10^6/ul (4.70-6.10) 06/20/19 03:07 Hgb 17.3 g/dl (14.0-18.0) 06/20/19 03:07 Hct 51.8 % (42.0-52.0) 06/20/19 03:07 MCV 91.4 fl (80.0-94.0) 06/20/19 03:07 MCH 30.5 pg (27.0-31.0) 06/20/19 03:07 MCHC 33.4 (31.8-35.4) 06/20/19 03:07 RDW Coeff of Sonia 12.6 % (11.6-14.8) 06/20/19 03:07 Plt Count 241 10^3/uL (140-440) 06/20/19 03:07 Immature Gran % (Auto) 0.4 % (0.0-5.0) 06/20/19 03:07 Neut % (Auto) 57.9 06/20/19 03:07 Lymph % (Auto) 29.9 (10.0-50.0) 06/20/19 03:07 [place] % (Auto) 9.9 (0-10) 06/20/19 03:07 Eos % (Auto) 1.4 % (0.0-7.0) 06/20/19 03:07 Baso % (Auto) 0.5 % (0.0-3.0) 06/20/19 03:07 Immature Gran # (Auto) 0.1 (0.0-1.0) 06/20/19 03:07 Neut # (Auto) 6.6 K/ul (2.0-6.9) 06/20/19 03:07 Lymph # (Auto) 3.4 K/uL (0.60-3.4) 06/20/19 03:07 [place] # (Auto) 1.1 K/uL (0.4-2.0) 06/20/19 03:07 Eos # (Auto) 0.2 K/ul (0.0-0.7) 06/20/19 03:07 Baso # (Auto) 0.1 K/uL (0-0.2) 06/20/19 03:07 Sodium 139.8 mmol/L (134.5-145) 06/20/19 03:07 Potassium 3.75 mmol/L (3.5-5.1) 06/20/19 03:07 Chloride 107.5 mmol/L (98-107) H 06/20/19 03:07 Carbon Dioxide 26.2 mmol/L (22-30.0) 06/20/19 03:07 Anion Gap 9.85 06/20/19 03:07 BUN 13.0 mg/dL (9-20) 06/20/19 03:07 Creatinine 0.68 mg/dL (0.60-1.10) 06/20/19 03:07 Estimated GFR (MDRD) 125.00 mL/min 06/20/19 03:07 BUN/Creatinine Ratio 19.11 06/20/19 03:07 Glucose 103.0 mg/dL (74-106) 06/20/19 03:07 Hemoglobin A1c 7.62 (4.0-6.0) H 06/19/19 05:00 Calcium 8.40 mg/dL (8.4-10.2) 06/20/19 03:07 Magnesium 1.84 mg/dL (1.6-2.3) 06/18/19 13:03 Total Bilirubin 0.76 mg/dL (0.2-1.3) 06/20/19 03:07 AST 32.0 U/L (17-59) 06/20/19 03:07 ALT 31.4 U/L (0-50) 06/20/19 03:07 Alkaline Phosphatase 47.7 U/L (38-126) 06/20/19 03:07 Total Creatine Kinase 82.0 U/L (55-170) 06/19/19 07:50 Troponin I < 0.012 ng/ml (0.0000-0.120) 06/19/19 07:50 Total Protein 7.46 g/dL (6.3-8.2) 06/20/19 03:07 Albumin 4.07 g/dL (3.5-5.0) 06/20/19 03:07 Globulin 3.39 06/20/19 03:07 Albumin/Globulin Ratio 1.20 06/20/19 03:07 Amylase 220.8 U/L (30-110) H D 06/19/19 05:00 Lipase 624.1 U/L (23-300) H 06/19/19 05:00 Urine Color Yellow (YELLOW) 06/18/19 13:03 Urine Clarity Clear (CLEAR) 06/18/19 13:03 Urine pH 5.0 (5-9) 06/18/19 13:03 Ur Specific [place] 1.015 (1.005-1.030) 06/18/19 13:03 Urine Protein Negative (NEGATIVE) 06/18/19 13:03 Urine Glucose (UA) 2+ (NEGATIVE) 06/18/19 13:03 Urine Ketones 3 (NEGATIVE) 06/18/19 13:03 Urine Blood Negative (NEGATIVE) 06/18/19 13:03 Urine Nitrite Negative (NEGATIVE) 06/18/19 13:03 Urine Bilirubin Negative (NEGATIVE) 06/18/19 13:03 Urine Urobilinogen 0.2 (0.2) 06/18/19 13:03 Ur Leukocyte Esterase Negative (NEGATIVE) 06/18/19 13:03 Urine Opiates Screen Negative (NEGATIVE) 06/18/19 13:03 Ur Oxycodone Screen Negative (NEGATIVE) 06/18/19 13:03 Urine Methadone Screen Negative (NEGATIVE) 06/18/19 13:03 Ur Propoxyphene Screen Negative (NEGATIVE) 06/18/19 13:03 Ur Barbiturates Screen Negative (NEGATIVE) 06/18/19 13:03 U Tricyclic Antidepress Negative (NEGATIVE) 06/18/19 13:03 Ur Phencyclidine Scrn Negative (NEGATIVE) 06/18/19 13:03 Ur Amphetamine Screen Negative (NEGATIVE) 06/18/19 13:03 U Methamphetamines Scrn Negative (NEGATIVE) 06/18/19 13:03 U Benzodiazepines Scrn Negative (NEGATIVE) 06/18/19 13:03 Urine Cocaine Screen Negative (NEGATIVE) 06/18/19 13:03 U Cannabinoids Screen Positive (NEGATIVE) 06/18/19 13:03 Plasma/Serum Alcohol < 10.0 mg/dL (0.0-50.0) 06/18/19 13:[address] abdomen and pelvis with and with contrast: No acute processes. Education Provided to Patient and Family: 1. Diabetes 2. Lisinopril 3. Basaglar: How to use insulin personally demonstrated to patient 4. Jardiance: R/B/A, SE. 5. Januvia: R/B/A, SE 6. Simvastaitn: R/B/A, SE 7. Metformin: R/B/A, SE Follow-ups: 1. PCP in 1 week. Hospital Course: 48 yo CM in ER room 5 presented to ED around noon 06/18/[address] Werner. Here with Mary today. The patient was driving earlier from [place] to [employer]. While driving he felt real hot, head swimming/nausea, sensation to have BM, dry heaves/retching, abdominal pain mid abdomen. He has had recent change in meds Januvia and jardiance added 3 months ago and he reported GI issues and weird symptoms since restarting januvia. He is on metformin as well for his diabetes. The patient last A1C was 1 month ago and went from 13.1 to 6.3. the patient has intermittent cramping, nausea, [place]. ETOH intake 18pack per week. No tobacco smoking, + chewing tobacco. I was called at 4:[address] Werner. Patient PCP Jacinta Gilbert. As noted above, he was going shopping, became hot in car, AC was not functional, hot/sweating, profuse dizziness and sweating. Severely light headed. Tried to drive back home, could not make it. Family stopped him around [place]. He was diffusely sweating, no r/o chest pain, he was pale, abdominal bloating discomfort, dizziness. This is #2 event in last week. It has happened x 2 historically: starts with GI pain, explosive diarrhea and then weakness. He is not checking sugars regularly at home. Patient was seen in ED room 5 1645 by me. He feels weak, disoriented, dizzy, EKG in ED was normal. CT head/abd pelvis normal w/o contrast. No convincing CT evidence of enterocolitis. No ascites or free air. IV contrast exam following am did not add anythign. Pancreatitis was the functional diagosis as amylase and lipase were up a little at admit and increased by 06/19/19. This may be from emesis but also ?januvia. Glucose was 235, known DM 2. WBC 15.24, hgb 18.9, plt 276. neutrophilia. Hemoconcentrated. CMP showed 135 sodium, potassium 5.82, cl 101.5. glucose 25.1. calcium 8.99. AST 31.1, Alt 41.6. Albumin 4.77. amylase and lipase elevated. ETOH <10. Mg++ 1.84. Urine SG 1.015. EKG reviewed by me QTC 446, NSR, NL EKG. Normal NE, normal QRS, normal axis, no acute ST/T changes. In ED he has had ~600-700 ml NS w/o K+. meclizine 25mg, Kayexalate PO, Norvasc 5mg. Diet soft drinks regularly 3 per day or so. He normally takes lisinopril. This was held by ED due to hyperkalemia. No recent travel, no recent steroids, no sick contacts. Last use of marijuana last night. He likes to smoke marijuana. Does not want to quit smoking THC. He has not increased ibuprofen or aleve. He has not had ulcer historically. Hydrated in ED, antivert given. Zofran given and nausea resolved. He notes something is weird/not right. Normally healthy but this came up and is odd for him. No abdominal pain, soft non tender now. Vitals most recently in ED showed 166/[address] Werner noted that they were variable. Nothing for BP was given so far in ED as it has been variable. Lisinopril held as above and Norvasc ordered. I will resume the lisinopril. Telemetry so far in ED nothing abnormal. No rhythm abnl. K+ minimally elevated. He is moaning. Dizzy, weak, tired, nauseated in head and stomach. I will give him SSi, hold Januvia. Hold metformin Continue jardiance. No urinary symptoms. No back pain, no blood in stool/emesis. He received kayexalate within ED 15G. Gastroenteritis vs Pancreatitis possible. As noted above we will get a CT abd/pelvis in am w/ contrast. I will add Phenergan 25mg IV or PO q 8 hours. Fluids 150ml/hour for now. Repeat CBC/CMP in am, amylase/lipase in am. Tele to be monitored. SSI. I checked back on patient at 1999. He was feeling better, less puny, less nausea, [place] better. BP was 177/85. Fluids to continue tonight. Resume lisinopril and will give norvasc 5 as listed. 06/19/19: Patient was improving, tolerated the 150ml NS per hour very well. Lipase/amylase increased, Hgb/WBC/plt decreased supporting hemodilution. Januvia was heled, metformin was held due to the CT scan. Hyperkalemia resolved. Lisinopril was increased to 20mg, BP stable. He was stable on telemetry, his symptoms continued to improve. This am 06/20 the patient labs looked good. WBC down to 11.34 from 15.05. Hgb down to 17.3 from 18.5. Plt 241 down from 254. CMp within normal limts. VS temp 98.1- 98.9. Pulse 73-109. BP 126/80 134/87 113/69 131/70 123/73. RR 18-20. O2 94-99. Tele SR. He was back to 100% per his report. Personally demo how t o use/care for insulin pen. Education on foot health, education on diabetes, how to use meds. Will hold metforminuntil am 06/22/19. Stop Januvia. Continue current meds. We will add basaglar to him. Demo how to use use this as well. F/U with PCP in 1 wee, return to ED PRN. Day of Discharge Physical Examination: Vital Signs - 24 hr 06/19/19 14:00 06/19/19 18:00 06/19/19 20:00 Temperature 98.6 F 98.5 F Pulse Rate 89 76 Pulse Rate [Apical] 100 H Respiratory Rate 18 20 Blood Pressure 126/80 134/87 O2 Sat by Pulse Oximetry 96 96 06/19/19 22:00 06/20/19 02:00 06/20/19 05:10 Temperature 98.5 F 98.9 F 98.1 F Pulse Rate 86 84 73 Pulse Rate [Apical] Respiratory Rate 18 18 20 Blood Pressure 113/69 131/70 123/73 O2 Sat by Pulse Oximetry 96 94 L 99 Physical Examination HEENT: Vitals: As per HPI/ER documentation. Constitutional: Appearance-No acute distress, Consistent with stated age. Orientation- Oriented x 3, alert Build and Nutrition-[Obese male] General- Patient is pleasant and cooperative with the interview and exam. Integumentary: General-No rashes, ulcers or lesions. Palpation- Normal skin moisture/turgor. Skin is warm to touch, appropriate. Capillary refill is normal bilateral Upper and lower extremity. Head/Neck: Head- normocephalic and atraumatic. Neck- without visible/palpable lumps or pulsations. Palpation- No bony tenderness about head/neck along frontal, occipital, temporal, parietal, mastoid, jawline, zygoma, orbit or any other location. NO temporal artery tenderness. No TMJ tenderness. Neck Supple. Thyroid-No thyromegaly, no nodules Eye: Bilaterally PERRLA, EOMI. No discharge. Upper and lower eyelids are normal. Sclera/conjunctiva normal without discharge. Cornea is normal and clear. Lens is normal. Eyeball appears normal. No ciliary flushing, no conjunctival injection. ENMT: Nose and sinus- No sinus tenderness along frontal/maxillary region. External appearance normal and midline. Nares- bilateral quiet airflow, no discharge. Nasal mucosa- No bleeding noted and no ulcerations observed. [place], moist. Turbinates non boggy. Lips- normal color, moist without cracks/lesions Oral Cavity/Palate- hard/soft palate intact without lesions, oral mucosa pink and moist. Tongue normal midline. Oropharynx- no pharyngeal erythema, Uvula midline. No post nasal drip. No exudate. Salivary glands- Non tender to palpation CHEST/LUNG: Inspection- symmetric chest wall no pectus deformity. Normal effort, no distress, no use of accessory muscles. Palpation- nontender sternum, ribline. No abnormal pulsations. Auscultation- Breath sounds normal throughout all lung vaughn. Normal tracheal sounds, Normal bronchial sounds overlying sternum, Bronchovessicular sounds normal between scapulae posteriorly, Normal vessicular breath sounds heard throughout periphery. Lungs are clear today. Adventitious sounds- No wheezes, rales, rhonchi. CARDIOVASCULAR: Carotid artery- normal, no bruits or abnormal pulsations. Jugular vein- no pulsations. Palpation/Percussion- Normal PMI, no palpable thrill Auscultation- Regular rate and rhythm. No murmur noted in sitting, supine positions. Extremities- no digital clubbing, cyanosis, edema, increased warmth. ABDOMEN: Inspection- normal and no visible pulsations. Normal contour. Auscultation- Bowel sounds normal, no abdominal bruits. Palpation/Percussion- soft, mild generalized tenderness haney negative, mcburney point tenderness negative,, no rebound tenderness, no rigidity (guarding), no jar tenderness, no masses. Liver-no hepatomegaly, Spleen no splenomegaly, Hernias- none. Rectal not examined. Musculoskeletal: Generalized-No generalized swelling or edema of extremities, no digital clubbing or cyanosis, neurovascularly intact all four extremities. Neurological: General- Moves all 4 extremities symmetrically. Symmetrical face and body posture. Cranial nerves- individually evaluated II-XII and intact. PERRLA, Normal EOMI, visual/special senses appear intact, Face is symmetrical and normal sensation/movement, normal tongue, normal strength/posture of neck musculature. Reflexes- intact with DTR 2+ patellar, Achilles, bicep, brachial, tricep. Ankle clonus normal with 2 beats. Strength- 5/5 bilateral UE and LE. Soft touch- intact bilateral UE and LE. Temperature sensation- intact bilateral UE and LE. Neuropsych: Oriented- Person, place, time. (AAOx3), Mood/affect- normal and congruent. Able to articulate well. Speech-Normal speech, normal rate, normal tone, normal use of language, volume and coherence. Plan: 1. d/C home 2. F/U PCP in 1 week 3. DM: Check sugars fasting - basaglar 10 units nightly (education provided) - Hold januvia - COntinue jardiance - Resume metformin 06/22/19 4. HTN: - LIsinopril 20mg daily 5. Chewing tobacco use: Cessation encouraged 6. THC use: Cessation Encouraged 7. Hyperkalemia: Resolved, monitor 8. Pancreatitis: Diet discussed with patient. Causes d/w patient. Carafate provided. Pain free at discharge. >30 min spent on discharge today.
== END 2019-06-20 07:39 | disposition other institution (70) ==
LOC: MEDSURG B 13:23 → ED 13:23 → MEDSURG B 17:45
PROVIDERS: ADMIT Family Medicine; ATTEND Family Medicine
DX: I10 Essential (primary) hypertension; E87.5 Hyperkalemia; F17.220 Nicotine dependence, chewing tobacco, uncomplicated; R74.8 Abnormal levels of other serum enzymes; E66.9 Obesity, unspecified; E42 Marasmic kwashiorkor; E78.5 Hyperlipidemia, unspecified; E11.9 Type 2 diabetes mellitus without complications